=== PATIENT | female | born 1970 | race Caucasian/White ===

== ENCOUNTER 2018-01-19 18:07 | Emergency (ER) | payer BC, OTHER, SELFPAY ==
[2018-01-19] MEDS ORDERED: Ondansetron HCl/PF 4 MG/2 ML Vial ONE (18:45)
[2018-01-19] MEDS ORDERED: Sodium Chloride 0.9% 1,000 ML ONE ×3 (18:45→23:28)
[2018-01-19] MEDS ORDERED: Lorazepam 2 MG/ML VIAL ONE (18:46)
[2018-01-19] MEDS ORDERED: Mag-Al Plus 1200 MG/1200 MG/120 MG/30 ML UDCUP ONE (18:47)
[2018-01-19] MEDS ORDERED: Lidocaine Viscous Sol 2% 15 ml UD Cup ONE (18:48)
[2018-01-19 19:23] LABS: #Lymphocytes 1.1 thou/uL (1.20-3.40); #Monocytes 0.3 thou/uL (0.11-0.59); #Neutrophils 8.3 thou/uL (1.40-6.50); %Basophils 0.3 % (0.0-1.0); %Eosinophils 0.3 % (0.0-10.0); %Lymphocytes 11.6 % (21.0-51.0); %Monocytes 3.2 % (0.0-10.0); %Neutrophils 84.6 % (42.0-75.0); Hemoglobin 12.6 g/dL (12.0-16.0); Mean Corpuscular HGB CONC 32.8 g/dL (32.0-36.0); Mean Corpuscular Hemoglobin 29.4 pg (27.0-31.0); Mean Corpuscular Volume 89.5 fL (78.0-98.0); Mean Platelet Volume 6.5 fL (7.4-10.4); Platelet Count 381 thou/uL (130-400); RBC Distribution Width 11.8 % (11.5-14.5); Red Blood Cell (RBC) Count 4.29 mill/uL (4.20-5.40); White Blood Cell (WBC) Count 9.8 thou/uL (4.8-10.8)
[2018-01-19 19:44] LABS: ALT (SGPT) 7 U/L (8-55); AST (SGOT) 11 U/L (5-34); Albumin 4.5 g/dL (3.5-5.0); Alkaline Phosphatase 70 U/L (40-150); Anion Gap 15 mmol/L (10-20); BUN (Urea Nitrogen) 16 mg/dL (7.0-18.7); Bilirubin, Total 0.5 mg/dL (0.2-1.2); Calc. Creatinine Clearance 0 mL/min (70-130); Calcium 9.7 mg/dL (7.8-10.44); Carbon Dioxide 19 mmol/L (22-29); Chloride 108 mmol/L (98-107); Estimated GFR-MDRD Greater than 90; Globulin 2.8 g/dL (2.4-3.5); Glucose 104 mg/dL (70-105); Lipase 17 U/L (8-78); Potassium 3.3 mmol/L (3.5-5.1); Protein, Total 7.3 g/dL (6.0-8.3); Sodium 139 mmol/L (136-145)
[2018-01-19 19:48] LABS: Bilirubin Small (Negative); Blood, Urine Small (Negative); Clarity Clear (Clear); Glucose, Urine (Dipstick) Negative (Negative); Leukocyte Trace (Negative); Nitrite Negative (Negative); Protein, Urine (Dipstick) Trace mg/dL (Neg-Trace); pH, Urine 6.5 (5.0-9.0)
[2018-01-19 19:57] LABS: Pregnancy Test - Urine (BHCG) Negative (Negative); Pregu Control Background? CLEAR/WHITE (CLR/WHITE); Pregu Control Bar Appear? YES (CONTROL BAR)
[2018-01-19 19:58] LABS: Amphetamine Not Detected (NotDetected); Barbiturates Screen Not Detected (NotDetected); Benzodiazepine Screen Not Detected (NotDetected); Cocaine Metabolite Screen Not Detected (NotDetected); Medtox Control Line Valid? VALID (VALID); Methadone Not Detected (NotDetected); Methamphetamine Not Detected (NotDetected); Opiate Screen Detected (NotDetected); Oxycodone Screen Not Detected (NotDetected); Phencyclidine (PCP) Not Detected (NotDetected); THC/Cannabinoid Screen Not Detected (NotDetected); Tricyclic Screen Detected (NotDetected)
[2018-01-19 20:01] LABS: Bacteria/HPF 1+ HPF (None Seen); RBC/HPF 0-3 HPF (0-3); WBC/HPF 0-3 HPF (0-3)
--- NOTE | 2018-01-19 20:33 | RAD ---
HISTORY: Abdominal pain. AP VIEW CHEST WELL SUPINE AND UPRIGHT VIEWS OF THE ABDOMEN 01/19/18 AP view chest demonstrates the lungs to be well aerated. No evidence of active intrathoracic disease seen. No evidence of effusions, pneumonia, or pneumothorax seen. Two views abdomen demonstrate a moderate amount of stool in the colon. No evidence of bowel obstruction or ileus seen. No evidence of free intraperitoneal air seen. The gastric air bubble is visualized. IMPRESSION: 1. Unremarkable AP view chest. 2. Large amount of stool in the colon with no evidence of bowel obstruction or ileus seen. POS: [facility]
[2018-01-19] MEDS ORDERED: Mannitol 12.5 GM/50 ML ONE (21:54)
[2018-01-19] MEDS ORDERED: manNITOL 20% 0 ML ONE (21:55)
--- NOTE | 2018-01-19 23:29 | CT ---
CONTRAST ENHANCED CT IMAGES ABDOMEN AND PELVIS 01/19/18 HISTORY: Pain. IV and oral contrast was given. CT images demonstrate the lung bases to be unremarkable. A small amount of free air seen beneath the left hemidiaphragm and adjacent to the spleen. This is concerning for rupture of the hollow viscus. The liver contains some small areas of hypodensity most compatible with a cyst. Hepatic and splenic g ranulomas seen. The gallbladder is unremarkable. A tiny pocket of gas is also seen anterior to the gallbladder. The pancreas is unremarkable. Adrenal gland and kidneys are unremarkable. No dilated loops of bowel seen. A large amount of stool is seen in the colon. IMPRESSION: Small amount of free intraperitoneal air No definite evidence of abscess seen. POS: [facility]
[2018-01-19] MEDS ORDERED: Piperacillin/Tazobactam 3.375 GM VIAL ONE (23:37)
== END 2018-01-20 00:05 | disposition short-term general hospital (02) ==
LOC: NAV ERS 18:07
DX: K63.1 Perforation of intestine (nontraumatic) (principal); G43.909 Migraine, unspecified, not intractable, without status migrainosus; Z79.899 Other long term (current) drug therapy; Z87.891 Personal history of nicotine dependence
CPT/HCPCS: 74022; 74177; 80053; 80306; 81003; 81015; 81025; 83605; 83690; 85025; 87040; 93005; 96361; 96374; 96375; J2060; J2150; J2270; J2405; J2543; J7050; J7799

== ENCOUNTER 2023-11-12 05:05 | Emergency (ER) | payer BC ==
[2023-11-12] MEDS ORDERED: Ondansetron PF 4 MG/2 ML Vial ONE (05:46)
[2023-11-12] MEDS ORDERED: Pantoprazole 40 MG VIAL ONE (05:46)
[2023-11-12] MEDS ORDERED: Lidocaine 2% Viscous 100 ML BOTTLE ONE (05:47)
[2023-11-12] MEDS ORDERED: Mag-Al Plus 1200/1200/120 MG (30 mL) UDCUP ONE (05:47)
[2023-11-12 06:22] LABS: #Basophils 0.1 thou/uL (0.0-0.2); #Monocytes 0.5 thou/uL (0.11-0.59); #Neutrophils 6.9 thou/uL (1.40-6.50); %Basophils 0.6 % (0.0-1.0); %Eosinophils 0.2 % (0.0-10.0); %Lymphocytes 21.4 % (21.0-51.0); %Monocytes 4.9 % (0.0-10.0); %Neutrophils 72.9 % (42.0-75.0); Hematocrit 41.9 % (36.0-47.0); Hemoglobin 13.8 g/dL (12.0-16.0); Mean Corpuscular HGB CONC 32.9 g/dL (32.0-36.0); Mean Corpuscular Hemoglobin 30.2 pg (27.0-31.0); Mean Corpuscular Volume 91.9 fl (78.0-98.0); Mean Platelet Volume 7.6 fL (7.4-10.4); Platelet Count 229 10x3/uL (130-400); RBC Distribution Width 11.2 % (11.5-14.5); Red Blood Cell (RBC) Count 4.56 mill/uL (4.20-5.40); White Blood Cell (WBC) Count 9.4 10x3/uL (4.8-10.8)
[2023-11-12 06:41] LABS: ALT (SGPT) 11 U/L (8-55); AST (SGOT) 16 U/L (5-34); Albumin 4.7 g/dL (3.5-5.0); Alkaline Phosphatase 79 U/L (40-110); Anion Gap 17 mmol/L (10-20); BUN (Urea Nitrogen) 9 mg/dL (9.8-20.1); Bilirubin, Total 0.3 mg/dL (0.2-1.2); Calc. Creatinine Clearance 0 mL/min (70-130); Calcium 10.8 mg/dL (7.8-10.44); Carbon Dioxide 22 mmol/L (22-29); Chloride 106 mmol/L (98-107); Estimated GFR 92; Globulin 2.5 g/dL (2.4-3.5); Glucose 116 mg/dL (70-105); Lipase 14 U/L (8-78); Potassium 3.9 mmol/L (3.5-5.1); Protein, Total 7.2 g/dL (6.0-8.3); Sodium 141 mmol/L (136-145)
[2023-11-12] MEDS ORDERED: Morphine 4 MG/ML VIAL ONE (06:41)
[2023-11-12] MEDS ORDERED: Sodium Chloride 0.9% 1,000 ML ONE (07:04)
[2023-11-12 07:15] LABS: Bilirubin Negative (Negative); Blood, Urine Negative (Negative); Clarity Clear (Clear); Glucose, Urine (Dipstick) Negative (Negative); Ketone, Urine Negative (Negative); Leukocyte Small (Negative); Nitrite Negative (Negative); Protein, Urine (Dipstick) Negative (Neg-Trace); Specific Gravity, Urine 1.025 (1.005-1.030); Urobilinogen 0.2 mg/dL (Less than 2); pH, Urine 7.5 (5.0-9.0)
[2023-11-12 07:17] LABS: Bacteria/HPF Rare-Few HPF (None Seen); CAUTI Indications for Culture Pelvic or flank pain; RBC/HPF 0-3 HPF (0-3); Squamous Epithelial 0-3 HPF (0-3); WBC/HPF 0-3 HPF (0-3)
[2023-11-12 07:18] LABS: Urine Culture Reflex No No
[2023-11-12] MEDS ORDERED: Iopamidol 370 76% 100 ML VIAL ONE (09:00)
== END 2023-11-12 10:33 | disposition home or self-care (01) ==
LOC: NAV ERS 05:05
DX: K25.9 Gastric ulcer, unspecified as acute or chronic, without hemorrhage or perforation (principal); Z87.891 Personal history of nicotine dependence
CPT/HCPCS: 74177; 80053; 81001; 83690; 85025; 96361; 96374; 96375; C9113; J2270; J2405; J7050; Q9967